=== PATIENT | male | born 1965 | race Two or more races ===

== ENCOUNTER → 2018-01-09 | Outpatient (CLI) | payer OTHER ==
[~2018-01-09] VITALS: Ht 182.9 cm; Wt 95.9 kg
[~2018-01-09] MED LIST: ASPI-1188 PO; INSREG SQ; LISI-660 PO; OMEG-50 PO; PREG150C PO; THIA100T67 PO
[2018-01-09 10:00] VITALS: BP 140/75
== END | disposition home or self-care (01) ==
LOC: HBOWC 09:53
PROVIDERS: ATTEND Nurse Practitioner Adult Health
DX: E11.621 Type 2 diabetes mellitus with foot ulcer (principal); L97.522 Non-pressure chronic ulcer of other part of left foot with fat layer exposed; E11.51 Type 2 diabetes mellitus with diabetic peripheral angiopathy without gangrene; I10 Essential (primary) hypertension; E78.5 Hyperlipidemia, unspecified; F32.9 Major depressive disorder, single episode, unspecified
CPT/HCPCS: 97597